=== PATIENT | male | born 1945 | race Asian ===

== ENCOUNTER 2018-02-05 06:16 | Day surgery (SDC) | payer MEDICARE, OTHER ==
[~2018-02-05] VITALS: Ht 177.8 cm; Wt 74.2 kg
[~2018-02-05 06:16] MED LIST: ALLO100T30 PO; AMIO100T4 PO; AMLO5TAB2 PO; ATOR20TA9 PO; ATOR40TA78 PO; CHOL500015 PO; COUMADIN PO; DOXA4TAB3 PO; FURO-92 PO; HYDR-3341 PO; Hydrocodone Bit/Acetaminophen PO; VALS320T2 PO; WARF2.5T PO
[2018-02-05] MEDS ORDERED: SODIUM CHLORIDE 0.9% 1,000 ML IV SCH (07:05)
[2018-02-05] MEDS ORDERED: BUPIVACAINE/PF 0.5% ONE (07:08)
[2018-02-05] MEDS ORDERED: EPINEPHRINE 1 MG/ML, 1ML ONE (07:09)
[2018-02-05] MEDS ORDERED: HEPARIN 1,000 UNITS/ML, 10ML ONE (07:09)
[2018-02-05 07:11] VITALS: BP 123/71
[2018-02-05 07:55] LABS: INTERNATIONAL NORMALIZED RATIO 1.07 (0.93-1.1); PROTHROMBIN TIME 11.1 Seconds (9.6-11.5)
[2018-02-05] MEDS ORDERED: METOCLOPRAMIDE 5 MG/ML, 2ML ONE (08:35)
[2018-02-05] MEDS ORDERED: ONDANSETRON ODT 4 MG ONE (08:35)
[2018-02-05] MEDS ORDERED: CEFAZOLIN 1,000 MG ONE (08:35)
[2018-02-05] MEDS ORDERED: PHENYLEPHRINE 10 MG/ML ONE (08:35)
[2018-02-05] MEDS ORDERED: PROPOFOL 10 MG/ML, 20ML ONE (08:35)
[2018-02-05] MEDS ORDERED: MIDAZOLAM 1 MG/ML, 2ML ONE ×2 (08:39→08:40)
[2018-02-05] MEDS ORDERED: FENTANYL PF 100 MCG/2ML ONE ×2 (08:39→10:13)
[2018-02-05] MEDS ORDERED: PROMETHAZINE 25 MG/ML, 1ML IV PRN (09:30)
[2018-02-05] MEDS ORDERED: FENTANYL PF 100 MCG/2ML IV PRN (09:30)
[2018-02-05] MEDS ORDERED: OXYcodone 5 MG/5 ML ORAL.SOL UDC PO PRN (09:30)
[2018-02-05] MEDS ORDERED: ONDANSETRON ODT 8 MG PO PRN (09:30)
[2018-02-05] MEDS ORDERED: MEPERIDINE/PF 25MG/0.5ML IVPush PRN (09:30)
[2018-02-05] MEDS ORDERED: OXYcodone 5 MG/5 ML ORAL.SOL UDC ONE (10:05)
[2018-02-05] MEDS ORDERED: HYDROcodone/APAP 5/325 TABLET PO PRN (11:30)
[2018-02-05] MEDS ORDERED: HYDROcodone/APAP 5/325 TABLET PO ONE (12:30)
== END 2018-02-05 13:00 ==
LOC: OUT 06:16
PROVIDERS: ATTEND Surgery Vascular Surgery
DX: T82.49XA Other complication of vascular dialysis catheter, initial encounter (principal); I12.0 Hypertensive chronic kidney disease with stage 5 chronic kidney disease or end stage renal disease; E11.22 Type 2 diabetes mellitus with diabetic chronic kidney disease; N18.6 End stage renal disease; I48.91 Unspecified atrial fibrillation; E78.5 Hyperlipidemia, unspecified; E03.9 Hypothyroidism, unspecified; D50.9 Iron deficiency anemia, unspecified; Y83.8 Other surgical procedures as the cause of abnormal reaction of the patient, or of later complication, without mention of misadventure at the time of the procedure; Y92.89 Other specified places as the place of occurrence of the external cause; Z98.890 Other specified postprocedural states; Z95.0 Presence of cardiac pacemaker
CPT/HCPCS: 36415; 49324; 49422; 80047; 85610; 85730; 93005; C1750; J0171; J0690; J1644; J2250; J2370; J2704; J2765; J3010; J3490; J7030; Q0162

== ENCOUNTER 2018-08-02 13:27 | Emergency (ER) | payer MEDICARE, OTHER ==
[~2018-08-02] VITALS: Ht 175.3 cm; Wt 78.0 kg
[~2018-08-02 13:27] MED LIST changes: -AMLO5TAB2 PO; +AMLO5TAB7 PO
[2018-08-02] MEDS ORDERED: OXYcodone/APAP 5/325MG TABLET ONE (13:53)
[2018-08-02] MEDS ORDERED: OXYcodone/APAP 5/325MG TABLET PO ONE (14:00)
[2018-08-02 15:01] VITALS: BP 164/72
== END 2018-08-02 15:14 | disposition home or self-care (01) ==
LOC: ED 15:13
DX: S22.32XA Fracture of one rib, left side, initial encounter for closed fracture (principal); E11.9 Type 2 diabetes mellitus without complications; I10 Essential (primary) hypertension; N28.9 Disorder of kidney and ureter, unspecified; Z95.0 Presence of cardiac pacemaker; W19.XXXA Unspecified fall, initial encounter; Y93.89 Activity, other specified; Y92.89 Other specified places as the place of occurrence of the external cause; Y99.8 Other external cause status
CPT/HCPCS: 99284

== ENCOUNTER 2018-08-19 07:37 | Emergency (ER) | payer MEDICARE, OTHER ==
[~2018-08-19] VITALS: Ht 175.3 cm; Wt 79.8 kg
[~2018-08-19 07:37] MED LIST changes: +AMLO-150 PO; -AMLO5TAB7 PO; +ATOR20TA37 PO; -ATOR20TA9 PO
[2018-08-19] MEDS ORDERED: SODIUM CHLORIDE FLUSH 10ML SYR IVF ONE (08:00)
[2018-08-19 08:36] LABS: BASOPHILS # (AUTO) 0.04 x10^3/uL (0-0.1); BASOPHILS % (AUTO) 0 % (0-1); EOSINOPHILS # (AUTO) 0.42 x10^3/uL (0-0.4); EOSINOPHILS % (AUTO) 3 % (1-7); LYMPHOCYTES # (AUTO) 1.23 x10^3/uL (1-3.4); LYMPHOCYTES % (AUTO) 10 % (22-44); MD NO; MEAN CORPUSCULAR HGB CONC 32.5 g/dL (33.2-36.2); MEAN CORPUSCULAR VOLUME 95.4 fL (81-97); MEAN PLATELET VOLUME 8.4 fL (7.4-10.4); MONOCYTES # (AUTO) 0.84 x10^3/uL (0.2-0.8); MONOCYTES % (AUTO) 7 % (2-9); NEUTROPHILS # (AUTO) 9.74 x10^3/uL (1.8-6.8); NEUTROPHILS % (AUTO) 79 % (42-75); PLATELET COUNT 193 x10^3/uL (130-400); RED BLOOD COUNT 3.39 x10^6/uL (4.38-5.82)
[2018-08-19 08:43] LABS: ALBUMIN 2.7 g/dL (3.4-5.0); ANION GAP 11 mmol/L (5-15); CALCIUM 7.5 mg/dL (8.5-10.1); CHLORIDE 97 mmol/L (98-107); CREATININE 5.29 mg/dL (0.7-1.3)
[2018-08-19 08:53] LABS: PARTIAL THROMBOPLASTIN TIME 62 Seconds (25-31)
[2018-08-19 09:12] LABS: PROTHROMBIN TIME 128.3 Seconds (9.6-11.5)
[2018-08-19 09:13] LABS: INTERNATIONAL NORMALIZED RATIO > 12.00 (0.93-1.1)
[2018-08-19] MEDS ORDERED: SODIUM CHLORIDE 0.9% 1,000ML IVBOLUS ONE (10:00)
[2018-08-19 11:09] VITALS: BP 112/52
== END 2018-08-19 11:12 | disposition home or self-care (01) ==
LOC: ED 09:09
DX: D68.9 Coagulation defect, unspecified (principal); S22.42XD Multiple fractures of ribs, left side, subsequent encounter for fracture with routine healing; E11.9 Type 2 diabetes mellitus without complications; I10 Essential (primary) hypertension
CPT/HCPCS: 36415; 71250; 80048; 82040; 85025; 85610; 85730; 93005; 99284; J7030

== ENCOUNTER 2018-08-20 11:21 | Inpatient (IN) | payer MEDICARE, OTHER ==
[~2018-08-20] VITALS: Ht 175.3 cm; Wt 78.1 kg
[2018-08-20] VITALS (10 sets, daily range): BP systolic 107–127; BP diastolic 25–65
[2018-08-20] MEDS ORDERED: SODIUM CHLORIDE 0.9% 1,000ML IVBOLUS ONE (12:00)
[2018-08-20] MEDS ORDERED: SODIUM CHLORIDE FLUSH 10ML SYR IVF ONE (12:00)
[2018-08-20 12:29] LABS: ALANINE AMINOTRANSFERASE 23 U/L (12-78); ALBUMIN 2.4 g/dL (3.4-5.0); ANION GAP 12 mmol/L (5-15); CALCIUM 6.7 mg/dL (8.5-10.1); CHLORIDE 98 mmol/L (98-107); CREATININE 6.12 mg/dL (0.7-1.3)
[2018-08-20 12:31] LABS: ALKALINE PHOSPHATASE 117 U/L (45-117); BILIRUBIN,TOTAL 0.5 mg/dL (0.2-1.0); TOTAL PROTEIN 5.3 g/dL (6.4-8.2)
[2018-08-20 12:39] LABS: BASOPHILS # (AUTO) 0.03 x10^3/uL (0-0.1); BASOPHILS % (AUTO) 0 % (0-1); EOSINOPHILS # (AUTO) 0.21 x10^3/uL (0-0.4); EOSINOPHILS % (AUTO) 2 % (1-7); LYMPHOCYTES # (AUTO) 1.25 x10^3/uL (1-3.4); LYMPHOCYTES % (AUTO) 12 % (22-44); MD NO; MEAN CORPUSCULAR HEMOGLOBIN 32.3 pg (27.5-34.5); MEAN CORPUSCULAR HGB CONC 33.7 g/dL (33.2-36.2); MEAN PLATELET VOLUME 8.3 fL (7.4-10.4); MONOCYTES # (AUTO) 0.53 x10^3/uL (0.2-0.8); MONOCYTES % (AUTO) 5 % (2-9); NEUTROPHILS # (AUTO) 8.72 x10^3/uL (1.8-6.8); NEUTROPHILS % (AUTO) 81 % (42-75); PLATELET COUNT 174 x10^3/uL (130-400); RED BLOOD COUNT 2.29 x10^6/uL (4.38-5.82)
[2018-08-20 13:12] LABS: PROTHROMBIN TIME 89.9 Seconds (9.6-11.5)
[2018-08-20 13:13] LABS: INTERNATIONAL NORMALIZED RATIO 9.24 (0.93-1.1)
[2018-08-20] MEDS ORDERED: PHYTONADIONE 10 MG/ML, 1ML IM ONE ×2 (13:30→16:00)
[2018-08-20] MEDS ORDERED: OMNIPAQUE 350 MG/ML, 100ML BOTTLE ONE (13:33)
[2018-08-20] MEDS ORDERED: ANTI INHIBITOR COAGULANT COMP IVPB ONE (14:00)
[2018-08-20] MEDS: PHYTONADIONE 10 MG/ML, 1ML SQ SCH (16:38)
[2018-08-20] MEDS: ACETAMINOPHEN 325 MG TABLET PO PRN ×2 (16:38→20:54)
[2018-08-20] MEDS ORDERED: ALLOPURINOL MC SCH (17:00)
[2018-08-20] MEDS: ATORVASTATIN 20 MG TABLET PO SCH (20:54)
[2018-08-20] MEDS: DOXAZOSIN 2MG TABLET PO SCH (20:54)
[2018-08-20] MEDS: INSULIN GLARGINE 100 UNITS/ML, PEN SQ-INSULIN SCH (21:59)
[2018-08-20] MEDS: INSULIN LISPRO 100 UNITS/ML, PEN SQ-INSULIN SCH (21:59)
[2018-08-21] VITALS (14 sets, daily range): BP systolic 122–158; BP diastolic 61–76
[2018-08-21 01:40] LABS: INTERNATIONAL NORMALIZED RATIO 2.91 (0.93-1.1); PROTHROMBIN TIME 29.6 Seconds (9.6-11.5)
[2018-08-21 01:54] LABS: MICROSCOPIC NOT IND
[2018-08-21 01:56] LABS: CULTURE INDICATED? NO
[2018-08-21 06:20] LABS: BASOPHILS # (AUTO) 0.03 x10^3/uL (0-0.1); BASOPHILS % (AUTO) 1 % (0-1); EOSINOPHILS # (AUTO) 0.41 x10^3/uL (0-0.4); EOSINOPHILS % (AUTO) 6 % (1-7); LYMPHOCYTES # (AUTO) 1.07 x10^3/uL (1-3.4); LYMPHOCYTES % (AUTO) 15 % (22-44); MD NO; MEAN CORPUSCULAR HEMOGLOBIN 33.1 pg (27.5-34.5); MEAN CORPUSCULAR HGB CONC 34.8 g/dL (33.2-36.2); MEAN CORPUSCULAR VOLUME 95.2 fL (81-97); MEAN PLATELET VOLUME 7.6 fL (7.4-10.4); MONOCYTES # (AUTO) 0.61 x10^3/uL (0.2-0.8); MONOCYTES % (AUTO) 9 % (2-9); NEUTROPHILS % (AUTO) 70 % (42-75); PLATELET COUNT 125 x10^3/uL (130-400); RED BLOOD COUNT 2.06 x10^6/uL (4.38-5.82); RED CELL DISTRIBUTION WIDTH 14.1 % (9.4-14.8)
[2018-08-21 06:26] LABS: INTERNATIONAL NORMALIZED RATIO 2.45 (0.93-1.1); PROTHROMBIN TIME 25.1 Seconds (9.6-11.5)
[2018-08-21 06:31] LABS: ALBUMIN 2.4 g/dL (3.4-5.0); ANION GAP 11 mmol/L (5-15); CALCIUM 6.3 mg/dL (8.5-10.1); CHLORIDE 100 mmol/L (98-107)
[2018-08-21 06:35] LABS: ALANINE AMINOTRANSFERASE 21 U/L (12-78); ALKALINE PHOSPHATASE 107 U/L (45-117); BILIRUBIN,TOTAL 0.5 mg/dL (0.2-1.0); CREATININE 5.93 mg/dL (0.7-1.3); TOTAL PROTEIN 5.3 g/dL (6.4-8.2)
[2018-08-21 06:51] LABS: HEMOGLOBIN A1C 7.2 % (4.2-6.3)
[2018-08-21] MEDS: INSULIN LISPRO 100 UNITS/ML, PEN SQ-INSULIN SCH ×5 (07:00→22:20)
[2018-08-21] MEDS ORDERED: POTASSIUM CHLORIDE 10% 40 MEQ/30 ML UDC PO ONE (07:30)
[2018-08-21] MEDS: PHYTONADIONE 10 MG/ML, 1ML SQ SCH (08:44)
[2018-08-21] MEDS ORDERED: PHYTONADIONE 10 MG/ML, 1ML SQ SCH (09:00)
[2018-08-21] MEDS: DOXAZOSIN 2MG TABLET PO SCH ×2 (09:00→22:19)
[2018-08-21] MEDS ORDERED: ALLOPURINOL 100 MG TABLET PO SCH (09:00)
[2018-08-21] MEDS: ACETAMINOPHEN 325 MG TABLET PO PRN ×2 (12:11→22:14)
[2018-08-21] MEDS ORDERED: SENNA/DOCUSATE TABLET ONE (14:56)
[2018-08-21] MEDS: SENNA/DOCUSATE TABLET PO SCH (15:00)
[2018-08-21] MEDS: ATORVASTATIN 20 MG TABLET PO SCH (22:14)
[2018-08-21] MEDS: ALLOPURINOL 100 MG TABLET PO SCH (22:15)
[2018-08-21] MEDS: INSULIN GLARGINE 100 UNITS/ML, PEN SQ-INSULIN SCH (22:36)
[2018-08-22 01:22] VITALS: BP 108/59
[2018-08-22] MEDS: INSULIN LISPRO 100 UNITS/ML, PEN SQ-INSULIN SCH ×4 (07:00→21:04)
[2018-08-22 07:04] VITALS: BP 163/67
[2018-08-22 07:28] LABS: BASOPHILS # (AUTO) 0.02 x10^3/uL (0-0.1); BASOPHILS % (AUTO) 0 % (0-1); EOSINOPHILS # (AUTO) 0.41 x10^3/uL (0-0.4); EOSINOPHILS % (AUTO) 7 % (1-7); LYMPHOCYTES # (AUTO) 0.92 x10^3/uL (1-3.4); LYMPHOCYTES % (AUTO) 16 % (22-44); MD NO; MEAN CORPUSCULAR HEMOGLOBIN 31.6 pg (27.5-34.5); MEAN CORPUSCULAR HGB CONC 34.5 g/dL (33.2-36.2); MEAN CORPUSCULAR VOLUME 91.7 fL (81-97); MEAN PLATELET VOLUME 7.9 fL (7.4-10.4); MONOCYTES # (AUTO) 0.59 x10^3/uL (0.2-0.8); MONOCYTES % (AUTO) 10 % (2-9); NEUTROPHILS # (AUTO) 3.95 x10^3/uL (1.8-6.8); NEUTROPHILS % (AUTO) 67 % (42-75); PLATELET COUNT 122 x10^3/uL (130-400); RED CELL DISTRIBUTION WIDTH 15.1 % (9.4-14.8)
[2018-08-22] MEDS: ALLOPURINOL 100 MG TABLET PO SCH (08:20)
[2018-08-22] MEDS: DOXAZOSIN 2MG TABLET PO SCH ×2 (08:20→21:01)
[2018-08-22] MEDS: PHYTONADIONE 10 MG/ML, 1ML SQ SCH (08:21)
[2018-08-22] MEDS: ACETAMINOPHEN 325 MG TABLET PO PRN ×2 (08:40→15:14)
[2018-08-22 12:27] VITALS: BP 169/74
[2018-08-22] MEDS ORDERED: [UNRECOGNIZED DRUG - REMARK] MC SCH (18:00)
[2018-08-22 19:49] VITALS: BP 146/55
[2018-08-22] MEDS: SENNA/DOCUSATE TABLET PO SCH (21:00)
[2018-08-22] MEDS: FUROSEMIDE 40 MG TABLET PO SCH (21:01)
[2018-08-22] MEDS: ATORVASTATIN 20 MG TABLET PO SCH (21:01)
[2018-08-22] MEDS: INSULIN GLARGINE 100 UNITS/ML, PEN SQ-INSULIN SCH (21:03)
[2018-08-23 00:20] VITALS: BP 159/70
[2018-08-23 07:00] VITALS: BP 160/71
[2018-08-23] MEDS: INSULIN LISPRO 100 UNITS/ML, PEN SQ-INSULIN SCH (07:00)
[2018-08-23] MEDS: ACETAMINOPHEN 325 MG TABLET PO PRN (07:02)
[2018-08-23] MEDS ORDERED: FUROSEMIDE 40 MG TABLET PO SCH ×2 (07:30→09:00)
[2018-08-23] MEDS: FUROSEMIDE 40 MG TABLET PO SCH (07:44)
[2018-08-23] MEDS: ALLOPURINOL 100 MG TABLET PO SCH (08:40)
[2018-08-23] MEDS: DOXAZOSIN 2MG TABLET PO SCH (08:41)
[2018-08-23] MEDS ORDERED: DICL100G25 TP (09:22)
[2018-08-23] MEDS ORDERED: TRAM50TA2 PO (09:22)
== END 2018-08-23 10:37 | disposition home or self-care (01) | DRG 183 ==
LOC: ED 11:58 → EDIP 13:40 → 4EST 14:51 → DCLOUNGE 08-23 10:20
PROVIDERS: ADMIT Internal Medicine; ATTEND Internal Medicine
PROC: 30233L1 Transfusion of Nonautologous Fresh Plasma into Peripheral Vein, Percutaneous Approach (ICD-10-PCS; principal; 2018-08-20)
PROC: 30233N1 Transfusion of Nonautologous Red Blood Cells into Peripheral Vein, Percutaneous Approach (ICD-10-PCS; 2018-08-20)
PROC: 30233R1 Transfusion of Nonautologous Platelets into Peripheral Vein, Percutaneous Approach (ICD-10-PCS; 2018-08-20)
PROC: 30233K1 Transfusion of Nonautologous Frozen Plasma into Peripheral Vein, Percutaneous Approach (ICD-10-PCS; 2018-08-20)
PROC: 3E1M39Z Irrigation of Peritoneal Cavity using Dialysate, Percutaneous Approach (ICD-10-PCS; 2018-08-22)
DX: S22.42XA Multiple fractures of ribs, left side, initial encounter for closed fracture (principal); N18.6 End stage renal disease; D62 Acute posthemorrhagic anemia; I13.11 Hypertensive heart and chronic kidney disease without heart failure, with stage 5 chronic kidney disease, or end stage renal disease; D68.69 Other thrombophilia; M48.54XA Collapsed vertebra, not elsewhere classified, thoracic region, initial encounter for fracture; S20.212A Contusion of left front wall of thorax, initial encounter; E11.22 Type 2 diabetes mellitus with diabetic chronic kidney disease; I48.0 Paroxysmal atrial fibrillation; W18.30XA Fall on same level, unspecified, initial encounter; I35.1 Nonrheumatic aortic (valve) insufficiency; E87.6 Hypokalemia; D72.829 Elevated white blood cell count, unspecified; Z99.2 Dependence on renal dialysis; Z91.81 History of falling; Z79.01 Long term (current) use of anticoagulants; Z79.4 Long term (current) use of insulin; Z95.3 Presence of xenogenic heart valve; Y93.89 Activity, other specified; Y92.89 Other specified places as the place of occurrence of the external cause; Y99.8 Other external cause status; T45.515A Adverse effect of anticoagulants, initial encounter
CPT/HCPCS: 36415; 36430; 74176; 74177; 80053; 81003; 82947; 82962; 83036; 83605; 85014; 85018; 85025; 85610; 85730; 86850; 86900; 86923; 87040; 93005; 93306; 99291; G0378; J3430; Q9967; J7030; P9016; P9017

== ENCOUNTER 2018-09-06 06:16 | Day surgery (SDC) | payer MEDICARE, OTHER ==
[~2018-09-06] VITALS: Ht 175.3 cm; Wt 75.1 kg
[~2018-09-06 06:16] MED LIST changes: +DICL100G25 TP; +TRAM50TA2 PO
[2018-09-06 07:01] VITALS: BP 153/82
[2018-09-06 07:26] LABS: BASOPHILS # (AUTO) 0.02 x10^3/uL (0-0.1); BASOPHILS % (AUTO) 0 % (0-1); EOSINOPHILS # (AUTO) 0.75 x10^3/uL (0-0.4); EOSINOPHILS % (AUTO) 12 % (1-7); LYMPHOCYTES % (AUTO) 16 % (22-44); MD NO; MEAN CORPUSCULAR HEMOGLOBIN 33.8 pg (27.5-34.5); MEAN CORPUSCULAR HGB CONC 35.7 g/dL (33.2-36.2); MEAN CORPUSCULAR VOLUME 94.6 fL (81-97); MEAN PLATELET VOLUME 8.3 fL (7.4-10.4); MONOCYTES # (AUTO) 0.48 x10^3/uL (0.2-0.8); MONOCYTES % (AUTO) 8 % (2-9); NEUTROPHILS # (AUTO) 4.15 x10^3/uL (1.8-6.8); NEUTROPHILS % (AUTO) 65 % (42-75); PLATELET COUNT 173 x10^3/uL (130-400); RED BLOOD COUNT 3.62 x10^6/uL (4.38-5.82); RED CELL DISTRIBUTION WIDTH 16.7 % (9.4-14.8)
[2018-09-06] MEDS ORDERED: SODIUM CHLORIDE 0.9% 1,000 ML IV SCH (07:30)
[2018-09-06] MEDS ORDERED: LIDOCAINE-MPF 1%, 5ML ONE (07:32)
[2018-09-06] MEDS ORDERED: WARF2.5T32 PO (07:32)
[2018-09-06] MEDS ORDERED: LOSA50TA7 PO (07:32)
[2018-09-06] MEDS ORDERED: CARV6.252 PO (07:32)
[2018-09-06] MEDS ORDERED: FENTANYL PF 100 MCG/2ML ONE (08:01)
[2018-09-06] MEDS ORDERED: MIDAZOLAM 1 MG/ML, 5ML ONE (08:01)
[2018-09-06] MEDS ORDERED: NALOXONE 1 MG/ML, 2ML ONE (08:01)
[2018-09-06] MEDS ORDERED: FLUMAZENIL 0.1 MG/1 ML, 5ML ONE (08:01)
[2018-09-06 08:11] LABS: INTERNATIONAL NORMALIZED RATIO 3.71 (0.93-1.1); PROTHROMBIN TIME 37.4 Seconds (9.6-11.5)
== END 2018-09-06 10:15 | disposition home or self-care (01) ==
LOC: OUT 06:16
PROVIDERS: ATTEND Internal Medicine Nephrology
DX: D64.9 Anemia, unspecified (principal); I48.91 Unspecified atrial fibrillation; E11.22 Type 2 diabetes mellitus with diabetic chronic kidney disease; I12.0 Hypertensive chronic kidney disease with stage 5 chronic kidney disease or end stage renal disease; N18.6 End stage renal disease; Z95.0 Presence of cardiac pacemaker; Z79.899 Other long term (current) drug therapy
CPT/HCPCS: 36415; 38222; 77012; 85025; 85060; 85097; 85610; 88237; 88264; 88280; 88305; 88311; 88313; 99156; J2250; J3010; J7030; 99157; J2310

== ENCOUNTER 2019-04-15 09:52 | Day surgery (SDC) | payer MEDICARE, OTHER ==
[~2019-04-15] VITALS: Ht 175.3 cm; Wt 73.9 kg
[2019-04-15 11:00] VITALS: BP 145/77
== END 2019-04-15 16:36 | disposition home or self-care (01) ==
LOC: OUT 09:52
PROVIDERS: ATTEND Surgery Vascular Surgery
DX: N18.6 End stage renal disease (principal); T82.590A Other mechanical complication of surgically created arteriovenous fistula, initial encounter; I48.91 Unspecified atrial fibrillation; Z79.4 Long term (current) use of insulin; Z79.01 Long term (current) use of anticoagulants; Z79.899 Other long term (current) drug therapy; Y83.8 Other surgical procedures as the cause of abnormal reaction of the patient, or of later complication, without mention of misadventure at the time of the procedure
CPT/HCPCS: 36415; 49324; 49422; 80047; 82962; 85610; 93005; C1750; J0330; J0690; J1644; J2250; J2405; J2704; J2710; J3010; J7030; J1100

== ENCOUNTER 2019-04-28 19:42 | Emergency (ER) | payer MEDICARE, OTHER ==
[~2019-04-28] VITALS: Ht 175.3 cm; Wt 72.1 kg
[2019-04-28 20:46] VITALS: BP 141/56
== END 2019-04-28 21:54 | disposition home or self-care (01) ==
LOC: ED 20:51
DX: R11.2 Nausea with vomiting, unspecified (principal); R19.7 Diarrhea, unspecified; E11.9 Type 2 diabetes mellitus without complications; I10 Essential (primary) hypertension; Z87.891 Personal history of nicotine dependence; Z95.0 Presence of cardiac pacemaker
CPT/HCPCS: 36415; 80053; 81001; 83605; 83690; 83735; 85025; 99283; Q0162